=== PATIENT | male | born 1955 | race Caucasian/White ===

== ENCOUNTER 2018-04-20 08:54 | Day surgery (SDC) | payer BC ==
[~2018-04-20 08:54] MED LIST: Buffered Lidocaine 0.9% SYRIN* 5 ML/SYR SYRINGE INTRADERM ONE; Dexamethasone IV* 4 MG/ML 1 ML (4 MG) IV SLOW PU ONE; Famotidine IV* 10 MG/ML 2 ML (20 mg) IV ONE
[2018-04-20] MEDS ORDERED: Famotidine IV* 10 MG/ML 2 ML (20 mg) ONE (09:13)
[2018-04-20] MEDS ORDERED: ceFAZolin 2 GM PREMIX (*) 2 GM/50 ML BAG IVPB ONE (09:13)
[2018-04-20] MEDS ORDERED: Dexamethasone IV* 4 MG/ML 1 ML (4 MG) ONE (09:13)
[2018-04-20] MEDS ORDERED: oxyCODONE/Acetamin 5/325 MG* TAB PO PRN (12:00)
[2018-04-20] MEDS ORDERED: Ketorolac INJ* 30 MG/ML 1 ML VIAL IV PRN (12:00)
[2018-04-20] MEDS ORDERED: fentaNYL* 50 MCG/ML 2 ML VIAL (100 MCG VIAL) IV PRN (12:00)
[2018-04-20] MEDS ORDERED: HYDROcodone/ACETAMIN 5-325 MG* 1 TAB PO PRN (12:00)
[2018-04-20] MEDS ORDERED: PROCHLORPERAZINE INJ 5 MG/ML 2 ML VIAL IV PRN (12:00)
[2018-04-20] MEDS ORDERED: Naloxone* 0.4 MG/ML 1 ML VIAL IV PRN (12:00)
[2018-04-20] MEDS ORDERED: fentaNYL* 50 MCG/ML 2 ML VIAL (100 MCG VIAL) ONE (12:04)
[2018-04-20] MEDS ORDERED: Midazolam* 1 MG/ML 5 ML VIAL (5 MG) ONE (12:04)
[2018-04-20] MEDS ORDERED: Lidocain 1% EPI 1:100,000 * 30 ML MDV ONE (12:06)
[2018-04-20] MEDS ORDERED: Propofol* 10 MG/ML 20 ML BTL IV PUSH ONE (12:32)
[2018-04-20] MEDS ORDERED: Lidocaine 2% PF * 5 ML VIAL ONE (12:32)
[2018-04-20] MEDS ORDERED: Bupivacaine 0.25% SDV* 30 ML ONE (12:34)
[2018-04-20 13:43] VITALS: BP 121/77
--- NOTE | 2018-04-20 21:54 | RAD ---
CPT II Codes: G9500 . Indication: Mallet finger deformity. Fluoroscopic services provided for referring physician. 7 seconds of fluoroscopy time was used. There is surgery with internal pinning of the left index finger. IMPRESSION: Intraoperative control films for left index finger repair.
--- NOTE | 2018-04-21 10:59 | OP ---
DATE OF OPERATION: 04/20/18 - [facility] DATE OF : 53. SURGEON: Moody Trammell M.D. HAND SHOE CUTTER: STEVEN Renteria. ANESTHESIOLOGIST: Dr. Alexander. ANESTHESIA: Local MAC. PRE-OP DIAGNOSIS: A 5-month-old left index finger mallet finger with near 70 to 80 degrees flexion of the distal interphalangeal joint. POST-OP DIAGNOSIS: A 5-month-old left index finger mallet finger with near 70 to 80 degrees flexion of the distal interphalangeal joint. 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 ESTIMATED BLOOD LOSS: 2 mL. COMPLICATIONS: None. FINDINGS: See above and below. DESCRIPTION OF PROCEDURE: Jasiel was seen in the preoperative holding area. The correct side, site, and procedure were identified. We came back to the operating room, and the arm was prepped and draped in the usual fashion. A time -out was performed. I exsanguinated the finger with the Tourni-Cot and left it on proximally. An H- shaped incision was made over the distal interphalangeal joint of the left index finger. Full thickness flaps were raised off the terminal extensor tendon. The attenuated portion of the terminal extensor tendon was excised with the Temple blade. I performed a tenolysis releasing the lateral margins of the tendon and raising the tendon from the adhesions to the bone. Once I had performed the tenolysis, I had a little bit of terminal extensor tendon stump to sew to. I decided to split the central portion of it. I then placed one mini Mitek suture anchor in the central portion of the distal phalanx. The limbs of the suture were then sewed into the terminal extensor tendon. At this point, I released the Tourni- Cot of the finger and exsanguinated the arm with an Esmarch and inflated a forearm tourniquet to allow for better tendon gliding. I used the suture anchor in a standard fashion with the whipstitch and then the tendon was pulled down to bone and tied off. I augmented the repair with multiple 4-0 [id number] Ethibond sutures. Once the repair was complete, I irrigated out the wounds and skin was closed with 4-0 nylon. A 0.45 K-wire was placed traversing the distal interphalangeal joint holding the fingertip in extension. The pin was then clipped and bent. The position of the pin was confirmed on fluoroscopy. The pin was dressed with Xeroform as was the wound. The wound was dressed with a 1-inch Fabiola. A clamshell AlumaFoam splint was placed and secured with Coban. Tourniquet was deflated and he was woken up and taken to the recovery room in stable condition. [id number]/[facility] #: [id number] MAGNOLIA
== END 2018-04-20 14:44 | disposition home or self-care (01) ==
LOC: OR 08:54
PROVIDERS: ATTEND Orthopaedic Surgery Hand Surgery
DX: M20.012 Mallet finger of left finger(s) (principal); I10 Essential (primary) hypertension; N40.0 Benign prostatic hyperplasia without lower urinary tract symptoms; E78.5 Hyperlipidemia, unspecified
CPT/HCPCS: 76000; C1713; C1776; J0690; J1100; J2250; J2704; J3010

== ENCOUNTER 2019-10-27 10:07 | Day surgery (SDC) | payer MEDICARE ==
[~2019-10-27 10:07] MED LIST changes: -Buffered Lidocaine 0.9% SYRIN* 5 ML/SYR SYRINGE INTRADERM ONE; +Buffered Lidocaine 1% SYRIN* 1 ML/SYRINGE INTRADERM ONE; +Cyclopentolate 1% OPTH.SOL* 2 ML BTL ONE; -Dexamethasone IV* 4 MG/ML 1 ML (4 MG) IV SLOW PU ONE; -Famotidine IV* 10 MG/ML 2 ML (20 mg) IV ONE; +Ketorolac 0.5% OPHTH (NF) 0.5 % 5 ML BTL ONE; +Lidocaine 1% MPF ** 5 ML VIAL ONE; +Lidocaine 2% w/ EPI 1:200,000* 20 ML SDV VIAL ONE; +Neomycin/Polymy/Dex OPTH.SUSP* MAXITROL 0.1% 5 ML ONE; +Phenylephrine OPHTH SOL 2.5%* 2 ML ONE; +Povidone Iodine 5% OPTH* 30 ML BTL ONE; +Proparacaine 0.5% OPHTH.SOL* 15 ML BTL ONE; +acetaZOLAMIDE TAB* 250 MG ONE
[2019-10-27] MEDS ORDERED: Midazolam* 1 MG/ML 5 ML VIAL (5 MG) ONE (12:39)
[2019-10-27] MEDS ORDERED: Midazolam* 1 MG/ML 2 ML VIAL (2 MG) ONE (12:58)
[2019-10-27 13:43] VITALS: BP 133/81
--- NOTE | 2019-10-27 19:19 | OP ---
DATE OF OPERATION: 10/27/19 [facility] DATE OF : 53 SURGEON: Nilton Marcus M.D. PREOPERATIVE DIAGNOSIS: Cataract, right eye. POSTOPERATIVE DIAGNOSIS: Cataract, right eye. OPERATIVE PROCEDURE: Extracapsular cataract extraction with intraocular lens implant, right eye. DESCRIPTION OF PROCEDURE: The patient was brought to the operating room after being given 1/2% Alcaine with epinephrine drops in the preoperative area. The eye was prepped and draped in the usual sterile fashion. Sterile drape and eyelid speculum were placed. Again, topical 1/2% Alcaine with epinephrine was given. A paracentesis incision was made at the 9 o'clock position with the No.75 blade. Clear cornea incision 2.2 x 2.2 mm was created at the 12 o'clock position starting at the anterior limbus using the 2.2-mm keratome. The anterior chamber was irrigated with 0.4 mL of 1% non-preservative intracameral lidocaine and filled with DisCoVisc. A capsulorrhexis was completed using the cystotome and the Utrata forceps. Hydrodissection was performed with balanced salt solution. The lens nucleus was removed with the Phacoemulsification handpiece without incident. Cortex was removed with the irrigation-aspiration handpiece. The capsular bag was re-inflated using DisCoVisc and an [id number] 19.5 implant was inserted with the shooter oriented to the 80 degree meridian. Horizontal reference wu with the patient in the seated position in the preoperative area. All measurements confirmed with ORA. The irrigation- aspiration handpiece was used to remove all residual DisCoVisc. The eye was refilled with balanced salt solution and the wound checked and found to be watertight. Topical Maxitrol drops were given. [id number]/[facility] #: [id number] [facility] H[facility]ITALDaisy
== END 2019-10-27 13:38 | disposition home or self-care (01) ==
LOC: OREAST 10:07
PROVIDERS: ATTEND Specialist
DX: H25.11 Age-related nuclear cataract, right eye (principal); D31.32 Benign neoplasm of left choroid; Z87.891 Personal history of nicotine dependence; I10 Essential (primary) hypertension; M19.90 Unspecified osteoarthritis, unspecified site; E78.00 Pure hypercholesterolemia, unspecified; N40.0 Benign prostatic hyperplasia without lower urinary tract symptoms
CPT/HCPCS: A9270-GY; J2250; V2787